=== PATIENT | male | born 1970 | race Caucasian/White ===

== ENCOUNTER 2018-11-24 09:39 | Emergency (ER) | payer BC ==
[2018-11-24] MEDS ORDERED: HYDROmorphone 1 MG/ML Syringe IM ONE (10:37)
[2018-11-24] MEDS ORDERED: Diazepam 5 MG Tab PO ONE (10:38)
[2018-11-24] MEDS ORDERED: Ketorolac 60 MG/2 ML SDV IM ONE (10:38)
[2018-11-24] MEDS ORDERED: methylPREDNISolone Sodium Succinate 125 MG/2 ML SDV IM ONE (10:45)
--- NOTE | 2018-11-24 10:45 | EDM.PDOC ---
ED HPI GENERAL MEDICAL PROBLEM - General Chief Complaint: General Stated Complaint: Lower Back Pain Time Seen by Provider: 11/24/18 10:10 Source of Information: Reports: Patient, Family History Limitations: Reports: No Limitations - History of Present Illness INITIAL COMMENTS - FREE TEXT/NARRATIVE: Patient complains of acute flare of low back pain that started yesterday around 3pm while shoveling snow. 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 No history of any particular back trauma. Usually sees a chiropractor for relief. No bowel/bladder dysfunction. Describes mild sensation glove/stocking numbness bilateral lower legs. No radiation of pain down the legs. - Related Data Allergies Allergy/AdvReac Type Severity Reaction Status Date / Time No Known Allergies Allergy Verified 11/24/18 09:40 Home Meds: Home Meds Cyclobenzaprine [Flexeril] 10 mg PO TID PRN #10 tab 11/24/18 [Rx] Ibuprofen 800 mg PO QID PRN 11/24/18 [History] traMADol [Ultram] 50 mg PO Q4H PRN #12 tab 11/24/18 [Rx] Past Medical History Musculoskeletal History: Reports: Back Pain, Chronic - Past Surgical History GI Surgical History: Reports: Appendectomy Musculoskeletal Surgical History: Reports: Ganglion Cyst Social & Family History - Tobacco Use Smoking Status *Q: Never Smoker - Caffeine Use Caffeine Use: Reports: Energy Drinks - Alcohol Use Alcohol Use History: Yes Alcohol Use Frequency: Socially ED ROS GENERAL - Review of Systems Review Of Systems: ROS reveals no pertinent complaints other than HPI. ED EXAM, GENERAL - Physical Exam Exam: See Below Exam Limited By: No Limitations General Appearance: Alert, WD/WN, Moderate Distress Eye Exam: Bilateral Eye: EOMI, PERRL Ears: Normal External Exam, Normal Canal Nose: Normal Inspection Throat/Mouth: Normal Inspection, Normal Voice, No Airway Compromise Head: Atraumatic, Normocephalic Neck: Supple, Full Range of Motion Respiratory/Chest: No Respiratory Distress, Lungs Clear, Normal Breath Sounds, No Accessory Muscle Use, Chest Non-Tender Cardiovascular: Normal Peripheral Pulses, Regular Rate, Rhythm, No Edema, No Murmur GI/Abdominal: Normal Bowel Sounds, Soft, Non-Tender, No Distention (Male) Exam: Deferred Rectal (Males) Exam: Deferred Back Exam: Other (Unable to reproduce tenderness with palpation. Straight leg raise appeared to be + bilaterally at 45 degrees. ). No: CVA Tenderness (L), CVA Tenderness (R), Muscle Spasm, Paraspinal Tenderness, Vertebral Tenderness Extremities: Normal Range of Motion, Non-Tender, No Pedal Edema, Normal Capillary Refill Neurological: Alert, Oriented, Normal Cognition, Normal Reflexes, Abnormal Gait (antalgic gait secondary to back pain), Other (has symmetric motor stregth upper and lower limbs. Subjective complaint mild numbess bilateral lower legs when touched. ) Psychiatric: Normal Affect, Normal Mood Skin Exam: Warm, Dry, Intact, Normal Color Course - Vital Signs Last Recorded V/S: Last Vital Signs Temp 36.3 C 11/24/18 09:46 Pulse 56 L 11/24/18 09:46 Resp 16 11/24/18 09:46 BP 112/79 11/24/18 09:46 Pulse Ox 99 11/24/18 09:46 - Orders/Labs/Meds Meds: Medications Discontinued Medications Generic Name Dose Route Start Last Admin Trade Name Mary Lou PRN Reason Stop Dose Admin Diazepam 5 mg 11/24/18 10:38 11/24/18 10:46 Valium. PO 11/24/18 10:39 5 mg ONETIME ONE Administration Hydromorphone HCl 1 mg 11/24/18 10:37 11/24/18 10:55 Dilaudid IM 11/24/18 10:38 1 mg ONETIME ONE Administration Ketorolac Tromethamine 60 mg 11/24/18 10:38 11/24/18 10:55 Toradol IM 11/24/18 10:39 60 mg ONETIME ONE Administration Methylprednisolone Sodium Succinate 125 mg 11/24/18 10:45 11/24/18 10:55 Solu-Medrol IM 11/24/18 10:46 125 mg ONETIME ONE Administration - Re-Assessments/Exams Free Text/Narrative Re-Assessment/Exam: 11/24/18 12:28 Given no history of trauma and increased discomfort with straight leg raise would recommend that patient undergo MRI evaluation as plain films will not be able to show soft tissue detail. Again, no bowel/bladder dysfunction at this time indicating emergent need for this study. Patient received IM Demerol/Toradol and one lower dose PO Valium. He was observed for an hour while his filled Rx for small number of Flexeril and Tramadol for home use. Significant improvement of pain noted. Patient able to ambulate. Precautions reviewed prior to discharge including avoiding driving and taking meds as prescribed. No ETOH while taking these medications. They are to return immediately to the ER (call 911) if any signs of cauda equina symptoms are noted. To call primary provider Monday morning to obtain follow up appointment and to see if they will write order for MRI. MRI is here Monday and it is possible that patient will be able to undergo his study at that time if there is an opening. Departure - Departure Time of Disposition: 11:45 Disposition: Home, Self-Care 01 Condition: Good Clinical Impression: Low back pain Qualifiers: Chronicity: unspecified Back pain laterality: bilateral Sciatica presence: without sciatica Qualified Code(s): M54.5 - Low back pain - Discharge Information *PRESCRIPTION DRUG MONITORING PROGRAM REVIEWED*: Not Applicable *COPY OF PRESCRIPTION DRUG MONITORING REPORT IN PATIENT TAMMY: Not Applicable Prescriptions: Cyclobenzaprine [Flexeril] 10 mg PO TID PRN #10 tab PRN Reason: Spasms traMADol [Ultram] 50 mg PO Q4H PRN #12 tab PRN Reason: Pain Instructions: Ketorolac injection, Hydromorphone injection, Methylprednisolone Solution for Injection, Diazepam tablets Referrals: Nidia Botello PA-C [Primary Care Provider] - Forms: ED Department Discharge Additional Instructions: Follow up with your primary provider and get scheduled for an MRI study of your lower spine. You may have disc/nerve root issues given the intermittent numbness that has accompanied your back pain. Do NOT take your prescribed medications more often than prescribed, nor in larger amounts than prescribed, as they potentially can cause respiratory depression. Do not mix with alcohol. Do NOT take more than 600-800mg of ibuprofen every 6-8 hours. It is very hard on the GI tract and can lead to a GI bleed. It is also hard on the kidneys. Ice the sore area to help with pain. Gentle activity. No lifting. Get the book [employer]. Do the exercises regularly. Return to the ER if you have worsening neurologic symptoms, such as loss of bowel/bladder control, lower extremity weakness.
== END 2018-11-24 11:45 | disposition home or self-care (01) ==
LOC: LL.ED 09:39
DX: M54.5 Low back pain (principal)
CPT/HCPCS: 96372; 99283; A9270-GY; J1170; J1885; J2930

== ENCOUNTER 2020-04-30 09:22 | Day surgery (SDC) | payer BC ==
[~2020-04-30 09:22] MED LIST: Midazolam 1 MG/ML 2 ML SDV ONE; Propofol 200 MG/20 ML SDV ONE
[2020-04-30] MEDS ORDERED: Sodium Chloride 0.9% 10 ML Syringe FLUSH PRN (09:30)
[2020-04-30] MEDS ORDERED: Lactated Ringers 1,000 ML IV SCH (09:30)
[2020-04-30] MEDS ORDERED: Norflurane/HFc 245FA Medium Stream Spray 103.5 ML Can TOP PRN (09:49)
--- NOTE | 2020-04-30 10:23 | PCM.PN ---
- General Info Date of Service: 04/30/20 - Review of Systems Systems Review Comment:: 50-year-old male referred by Esther Botello for colonoscopy. This is his first colonoscopy. He does admit to occasional rectal bleeding. He also notes that his brother had a history of colon polyps. He denies any family history of colon cancer. He is medically stable to proceed today. His recent history and physical is reviewed and no significant changes are noted. I have discussed the proposed colonoscopy with the patient. Risks such as but not limited to bleeding and GI injury are reviewed. He agrees to proceed. - Patient Data Vitals - Most Recent: Last Vital Signs Temp 97.4 F 04/30/20 10:15 Pulse 104 H 04/30/20 10:15 Resp 18 04/30/20 10:15 BP 123/96 H 04/30/20 10:15 Pulse Ox 97 04/30/20 10:15 Weight - Most Recent: 102.965 kg Med Orders - Current: Current Medications Lactated Ringer's (Ringers, Lactated) 1,000 mls @ 125 mls/hr IV ASDIRECTED ROSIO Last Admin: 04/30/20 10:13 Dose: 125 mls/hr Documented by: Norflurane (Pain Ease Pitcher) 0 ml TOP ASDIRECTED PRN PRN Reason: IV start Sodium Chloride (Saline Flush) 10 ml FLUSH ASDIRECTED PRN PRN Reason: Keep Vein Open Discontinued Medications Midazolam HCl (Versed 1 Mg/Ml) Confirm Administered Dose 2 mg .ROUTE .STK-MED ONE Stop: 04/30/20 08:40 Propofol (Diprivan 20 Ml) Confirm Administered Dose 200 mg .ROUTE .STK-MED ONE Stop: 04/30/20 08:40 Sepsis Event Note - Focused Exam Vital Signs: Vital Signs Temp Pulse Resp BP Pulse Ox 04/30/20 10:15 97.4 F 104 H 18 123/96 H 97 Date Exam was Performed: 04/30/20 Time Exam was Performed: 10:21 - Problem List Review Problem List Initiated/Reviewed/Updated: Yes - My Orders Last 24 Hours: My Active Orders 04/30/20 09:30 Patient Status [ADT] Routine Peripheral IV Care [RC] . DIRECTED Verify Patient Consent Obtain [RC] ASDIRECTED Lactated Ringers [Ringers, Lactated] 1,000 ml IV ASDIRECTED Sodium Chloride 0.9% [Saline Flush] 10 ml FLUSH ASDIRECTED PRN Peripheral IV Insertion Adult [OM.PC] Routine 04/30/20 09:49 Norflurane/HFc 245FA [Pain Ease Pitcher] 0 ml TOP ASDIRECTED PRN - Assessment Assessment:: Colon cancer screening - Plan Plan:: Colonoscopy
[2020-04-30] MEDS ORDERED: Midazolam 1 MG/ML 2 ML SDV ONE (10:31)
[2020-04-30] MEDS ORDERED: Propofol 200 MG/20 ML SDV ONE (10:31)
--- NOTE | 2020-04-30 11:12 | PCM.OPNOTE ---
- General Post-Op/Procedure Note Date of Surgery/Procedure: 04/30/20 Operative Procedure(s): Colonoscopy with polypectomy Findings: Moderate sized rectal polyp Colon otherwise appears normal Pre Op Diagnosis: Positive Cologuard test Post-Op Diagnosis: Colon polyp Anesthesia Technique: MAC Primary Surgeon: Rohit Cordero Pathology: Rectal polyp EBL in mLs: 0 Complications: None Condition: Good
--- NOTE | 2020-04-30 12:46 | OR ---
Date of Procedure: 04/30/2020 PREOPERATIVE DIAGNOSIS: Colon cancer screening with positive Cologuard. POSTOPERATIVE DIAGNOSIS: Colon polyp. OPERATIONS PERFORMED: Colonoscopy with polypectomy. INDICATIONS FOR SURGERY: This 50-year-old male is seen today for his initial screening colonoscopy. He did have a recent positive Cologuard test. FINDINGS: A single polyp was noted on today's exam. This is located in the rectum, 10 cm from the anal verge. It is 8 mm in size and semipedunculated in shape. The remainder of the colon appears normal. DESCRIPTION OF PROCEDURE: The patient was taken to the operating room. He was given intravenous sedation, and with him in the left lateral decubitus position, a digital rectal exam was performed showing no rectal masses. The Olympus colonoscope was inserted into the rectum and retroflexed examination of the rectal canal was performed. At the 10 cm level, the above-described polyp was identified. This was removed with a cautery snare and retrieved into a polyp trap. The scope was then carefully advanced under direct visualization through the entire length of the colon until the cecum was reached. Cecal acquisition was confirmed by identifying the normal internal cecal anatomy including the appendiceal orifice and ileocecal valve. The light was also noted to transilluminate the abdominal wall in the right lower quadrant. After examining the cecum, the scope was slowly withdrawn sequentially re-examining the colonic segments until the entire colon and rectum had been fully examined. The scope was removed and the patient was taken from the operating room in satisfactory condition. ESTIMATED BLOOD LOSS: Zero. COMPLICATIONS: None. PROGNOSIS: Good. CASIE Cordero MD /[id number]
== END 2020-04-30 12:30 | disposition home or self-care (01) ==
LOC: LL.SDS 09:22
PROVIDERS: ATTEND Surgery
DX: D12.8 Benign neoplasm of rectum (principal); E66.9 Obesity, unspecified; K21.9 Gastro-esophageal reflux disease without esophagitis; M10.9 Gout, unspecified; Z68.34 Body mass index [BMI] 34.0-34.9, adult; Z79.82 Long term (current) use of aspirin; Z79.899 Other long term (current) drug therapy; Z83.71 Family history of colonic polyps
CPT/HCPCS: J2250; J2704; J7120